=== PATIENT | female | born 1965 | race Caucasian/White ===

== ENCOUNTER 2018-01-18 18:48 | Observation (INO) ==
[2018-01-18] MEDS ORDERED: *HR* Midazolam HCl 5 MG/5 ML VIAL IVP ONE (20:16)
[2018-01-18] MEDS ORDERED: *HR* FentaNYL (PF) 100 MCG/2 ML VIAL ONE (20:16)
[2018-01-18] MEDS ORDERED: Simethicone 40 MG/0.6 ML MLS IR ONE (20:22)
[2018-01-18] MEDS ORDERED: *HR* Midazolam HCl 2 MG/2 ML VIAL IVP ONE (20:22)
[2018-01-18] MEDS ORDERED: Tetracaine/Benzocaine/Butamben 200MG/SPRAY (100SPY/BOT) MM ONE (20:22)
[2018-01-18] MEDS ORDERED: *HR* FentaNYL (PF) 100 MCG/2 ML VIAL IVP ONE (20:22)
--- NOTE | 2018-01-18 20:22 | Pre-Sedation Evaluation ---
Pre-sedation evaluation - Pre-sedation checklist Date of procedure: 01/18/18 Procedure: egd with fb removal Recent Vitals: Last Vital Signs Pulse 87 01/18/18 20:16 Resp 16 01/18/18 20:16 BP 125/85 01/18/18 20:16 Pulse Ox 98 01/18/18 20:16 H&P (including ROS) documented in medical record: No Previous reaction to sedatives/anesthetics: No Dentition: No loose teeth or bridges ASA Classification *see protocol: CLASS II-Mild systemic disease Plan of Care: Pt appropriate candidate for procedure/moderate/conscious sedation , Risks/benefits of procedure/sedation discussed w/ patient/family
--- NOTE | 2018-01-18 20:36 | Gastroenterology Consult Note ---
Date of Encounter: 01/18/18 Time of Encounter: 20:25 - Assessment and plan (1) Food impaction of esophagus Current Visit: Yes Status: Acute Assessment and plan: Pt to have urgent EGD. If found to have an esophageal stricture then poss dilation Qualifiers: Encounter type: initial encounter Qualified Code(s): T18.128A - Food in esophagus causing other injury, initial encounter - Time Spent With Patient Total time spent is greater than 50% in coordination of care (as documented) at patient's floor/unit and/or counseling patient: GI History of Present Illness - Data of Consult Requesting Physician: Delroy Park MD - Consult Narrative Reason for consult: Food impaction History of present illness: Ms. Pardo is a 52 year old female with piece of pork meat stuck in throat this evening. Now cannot swallow any secretions. has mild discomfort in throat. No CP , no sob, no fever Pt with Hx of food impaction in and had eGD with dilation done. Does has on on off dysphagia especilly with solids and pills Past Med Surg Social Fam HX - Past Surgical History Surgical History: appendectomy, Review of Systems: GI: as per [facility] GENERAL: denies fever, has some chills EYES: denies yellow discoloration ENT: denies pain with swallowing or difficulty swallowing CARDIO: denies chest pain, palpitations RESP: No Shortness of breath with exertion : denies change in color of urine NEURO: denies any weakness HEME: Denies any bruising MS: denies joint pain, joint swelling or back pain. DERM: denies rash or itching PSYCH: Denies history of anxiety or depression - Constitutional Vitals: Pulse Resp BP Pulse Ox 87 16 125/85 98 01/18/18 20:16 01/18/18 20:16 01/18/18 20:16 01/18/18 20:16 CONSTITUTIONAL:~alert, no acute distress.~HEAD:~normocephalic.~EYES:~no jaundice.~NECK:~no obvious swelling.~HEART:~regular rate and rhythm, no murmurs. ~LUNGS:~bilateral good air entry.~ABDOMEN:~non distended, soft, non tander, no masses pulpable, no organomegaly.~RECTAL EXAM:~Deferred.~EXTREMITIES:~no clubbing, cyanosis or edema.~SKIN:~no stigmata of chronic liver disease.~ NEUROLOGIC:~no obvious focal defect.~~~~ General appearance: Present: A&O X 3 Consult Discharge Plan - Plan Referrals: Lisa Henry CNP [Primary Care Provider] -
== END 2018-01-18 20:55 | disposition home or self-care (01) ==
LOC: 2SOUTHHOLD
PROVIDERS: ADMIT Internal Medicine; ATTEND Internal Medicine
PROC: ENDOEFB (2018-01-18 20:15)